=== PATIENT | male | born 1995 | race Caucasian/White ===

== ENCOUNTER 2022-02-01 11:56 | Emergency (ER) | payer SELFPAY ==
[~2022-02-01] VITALS: Ht 170.1 cm; Wt 61.3 kg
[2022-02-01 12:03] VITALS: BP 139/77
[2022-02-01] MEDS ORDERED: LIDOCAINE 1% INJ 50 ML (XYLOCAINE) VIAL ONE (12:04)
[2022-02-01] MEDS ORDERED: TETANUS,DIPTH,PERTUSS P/F (BOOSTRIX) 0.5 ML VIAL IM ONE (12:30)
--- NOTE | 2022-02-01 12:32 | ED Upper Extremity ---
General Chief Complaint: Laceration Stated Complaint: RT HAND LAC Nursing Triage Note: Patient presents to the ED with c/o laceration to right hand. States he was moving a cast iron table when it tipped over and fell on his right hand causing the laceration. Source: patient Exam Limitations: no limitations History of Present Illness Date Seen by Provider: Feb 01, 2022 Time Seen by Provider: 12:02 Initial Comments 23-year-old right-handed male patient states he was moving a cast iron table and it tripped and cut his right hand on thenar area. Patient rated his pain as a moderate pain and denies other injuries. Patient is not up-to-date with tetanus immunization. Onset: just prior to arrival Allergies and Home Medications Allergies Coded Allergies: Penicillins (Verified Allergy, Unknown, 02/01/22) Patient Home Medication List Home Medication List Reviewed: Yes Review of Systems Constitutional: no symptoms reported EENTM: no symptoms reported Respiratory: no symptoms reported Cardiovascular: no symptoms reported Gastrointestinal: no symptoms reported Genitourinary: no symptoms reported Musculoskeletal: see HPI Skin: see HPI Psychiatric/Neurological: No Symptoms Reported All Other Systems Reviewed Negative Unless Noted: Yes Past Dprpniy-Jhqckn-Omqazr Hx Patient Social History Tobacco Use?: Yes Tobacco type used: Cigarettes Substance use?: No Alcohol Use?: Yes Alcohol type: Beer Alcohol Frequency: Once in a while Pt feels they are or have been: No Immunizations Up To Date First/Initial COVID19 Vaccinat: Not currently vaccinated Past Medical History Surgery/Hospitalization HX: Hernia repair; migraines Physical Exam Vital Signs Vital Signs - First Documented 02/01/22 12:03 Temp 36.8 Pulse 85 Resp 14 B/P (MAP) 139/77 (97) Pulse Ox 98 O2 Delivery Room Air Capillary Refill : Less Than 3 Seconds Height, Weight, BMI Height: '" Weight: lbs. oz. kg; 21.00 BMI Method: General Appearance: WD/WN, no apparent distress HEENT: PERRL/EOMI, normal ENT inspection Neck: non-tender, full range of motion, supple Cardiovascular: regular rate, rhythm, no edema Respiratory: chest non-tender, lungs clear, normal breath sounds, no respiratory distress, no accessory muscle use Back: normal inspection Shoulder: normal inspection Elbow/Forearm: normal inspection Wrist: Yes normal inspection Hand: Right, laceration Neurologic/Tendon: normal sensation, normal motor functions, normal tendon functions Neurologic/Psychiatric: no motor/sensory deficits Skin: normal color, tattoos/piercings 2 cm flap laceration on right thenar area without active bleeding Procedures/Interventions Wound Location: Upper Extremities Wound Length (cm): 2 Wound's Depth, Shape: flap Wound Explored: no foreign body removed Irrigated w/ Saline (ccs): 30 Wound Debrided: none Suture: Prolene Suture Size: 4-0 Number of Sutures: 5 Layer Closure?: 1 Sterile Dressing Applied?: Yes Progress/Results/Core Measures Results/Orders My Orders Orders - JOSELO LIZAMA MD Lidocaine 1% Inj 50 Ml (Xylocaine 1% Inj (02/01/22 12:04) Dipht,Pertuss(Acell),Tet Adult (Boostrix (02/01/22 12:30) Lidocaine 1% Inj 50 Ml (Xylocaine 1% Inj (02/01/22 12:45) Medications Given in ED Current Medications Medications Dose Ordered Sig/Gato Route Start Time Stop Time Status Last Admin Dose Admin Diphtheria/ Tetanus/Acell Pertussis 0.5 ml ONCE ONCE IM 02/01/22 12:30 02/01/22 12:31 DC 02/01/22 12:41 0.5 ML Lidocaine HCl 50 ml STK-MED ONCE .ROUTE 02/01/22 12:04 02/01/22 12:06 DC 02/01/22 12:44 50 ML Vital Signs/I&O 02/01/22 12:03 Temp 36.8 Pulse 85 Resp 14 B/P (MAP) 139/77 (97) Pulse Ox 98 O2 Delivery Room Air Blood Pressure Mean: 97 Progress Progress Note : Progress Note Evaluation of patient in ER showed 26-year-old right-handed male patient with flap laceration of volar side of right hand that was repaired with 5 sutures. Tdap was given and patient advised to keep wound clean and dry and return to ER or follow-up with his primary care physician in 10 days for suture removal. Departure Impression Primary Impression: Laceration of right hand Qualified Codes: S61.411A - Laceration without foreign body of right hand, initial encounter Disposition: 01 HOME, SELF-CARE Condition: Improved Departure-Patient Inst. Decision time for Depature: 12:31 Referrals: NO,LOCAL PHYSICIAN (PCP/Family) Primary Care Physician Patient Instructions: Laceration Repair With Stitches ED, Wound Care ED, Tetanus Toxoid (Adsorbed) Add. Discharge Instructions: Keep wound clean and dry Suture removal in 10 days May take Tylenol and ibuprofen as needed for pain Return to ER as needed All discharge instructions reviewed with patient and/or family. Voiced understanding. JOSELO LIZAMA MD Feb 01, 2022 12:32
[2022-02-01] MEDS ORDERED: LIDOCAINE 1% INJ 50 ML (XYLOCAINE) VIAL IJ ONE (12:45)
== END 2022-02-01 12:45 | disposition home or self-care (01) ==
LOC: ER FS 11:57
DX: S61.411A Laceration without foreign body of right hand, initial encounter (principal); F17.210 Nicotine dependence, cigarettes, uncomplicated; Z23 Encounter for immunization; Z28.310 Unvaccinated for COVID-19; W26.8XXA Contact with other sharp object(s), not elsewhere classified, initial encounter
CPT/HCPCS: 12001; 90715

== ENCOUNTER 2022-04-14 04:02 | Emergency (ER) | payer SELFPAY ==
[~2022-04-14] VITALS: Ht 170.1 cm; Wt 60.2 kg
[2022-04-14] MEDS ORDERED: CLINDAMYCIN 150 MG (CLEOCIN) CAP PO ONE (04:15)
[2022-04-14] MEDS ORDERED: KETOROLAC 30 MG/ML VIAL IM ONE (04:15)
[2022-04-14] MEDS ORDERED: KETO10TA PO (04:19)
[2022-04-14] MEDS ORDERED: CLIN-144 PO (04:19)
--- NOTE | 2022-04-14 04:21 | ED EENT ---
History of Present Illness General Chief Complaint: Dental Problems/Pain Stated Complaint: TOOTH PAIN Source: patient Exam Limitations: no limitations History of Present Illness Date Seen by Provider: Apr 14, 2022 Time Seen by Provider: 04:08 Initial Comments 27-year-old male with no pertinent past medical history coming in due to bilateral tooth pain on the upper part of his mouth. He states he has had bad teeth for a while, on started getting worse, scheduled an appointment for a dentist in 2 days from today. Pain worsened yesterday and he feels like one of the teeth broke a little bit more. Pain is constant, throbbing, severe. Took Tylenol couple hours ago which did help somewhat. Is otherwise denying any other acute complaints including any swelling or fever. Allergies and Home Medications Allergies Coded Allergies: Penicillins (Verified Allergy, Unknown, 02/01/22) Patient Home Medication List Home Medication List Reviewed: Yes Review of Systems Review of Systems Constitutional: No fever Eyes: No Symptoms Reported Ears: No Symptoms Reported Nose: no symptoms reported Mouth: see HPI Throat: no symptoms reported Respiratory: no symptoms reported Cardiovascular: no symptoms reported Gastrointestinal: no symptoms reported Musculoskeletal: no symptoms reported Skin: no symptoms reported Neurological: No Symptoms Reported Hematologic/Lymphatic: No Symptoms Reported Immunological/Allergic: no symptoms reported All Other Systems Reviewed Negative Unless Noted: Yes Past Whyljso-Rnfqnt-Emdplv Hx Patient Social History Substance use?: No Immunizations Up To Date First/Initial COVID19 Vaccinat: Not currently vaccinated Past Medical History Surgery/Hospitalization HX: Hernia repair; migraines Surgeries: Yes Physical Exam Height, Weight, BMI Height: '" Weight: lbs. oz. kg; 21.00 BMI Method: General Appearance: WD/WN, mild distress Eyes: bilateral eye normal inspection Ears: bilateral ear auricle normal Nose: normal inspection Mouth/Throat: dental tenderness (No abscess felt, floor of mouth is soft, normal oropharynx, no trismus, normal voice) Neck: non-tender, full range of motion, supple, normal inspection Cardiovascular: regular rate, rhythm, no edema, no murmur Respiratory: chest non-tender, lungs clear, normal breath sounds, no respiratory distress, no accessory muscle use Gastrointestinal: normal bowel sounds, non tender, soft; No distended, No guarding, No rebound Neurologic/Psychiatric: no motor/sensory deficits, alert, normal mood/affect Skin: normal color, warm/dry Procedures/Interventions Suture Size: 4-0 Progress/Results/Core Measures Results/Orders My Orders Orders - EMIGDIO RUCKER MD Clindamycin Capsule (Cleocin Capsule) (04/14/22 04:15) Ketorolac Injection (Toradol Injection) (04/14/22 04:15) Progress Progress Note : Progress Note 27-year-old male with above history coming in due to dental pain. ABCs were intact and vitals were stable on presentation. Physical exam with multiple dental caries and a couple fractured teeth, but no swelling or obvious abscess. No red flags otherwise. Given clindamycin and IM Toradol. Has an appointment with his dentist in a couple of days. Will be given antibiotics to get him through the week. Departure Impression Primary Impression: Pain, dental Disposition: HOME, SELF-CARE Condition: Stable Departure-Patient Inst. Decision time for Depature: 04:25 Referrals: NO,LOCAL PHYSICIAN (PCP/Family) Primary Care Physician Patient Instructions: Dental Pain Add. Discharge Instructions: These teeth do need to come out, the antibiotics will help with the problem for short period of time, but think of it like a Band-Aid, and the problem will come back. Toradol was sent to your pharmacy as well. Do not mix this with ibuprofen, but you can take Tylenol with it. Scripts Clindamycin HCl (Clindamycin HCl) 300 Mg Capsule 300 MG PO QID for 7 Days, #28 CAP Prov: EMIGDIO RUCKER MD 04/14/22 Ketorolac Tromethamine (Ketorolac Tromethamine) 10 Mg Tablet 10 MG PO Q6H for 3 Days, #12 TAB Prov: EMIGDIO RUCKER MD 04/14/22 Work/School Note: Work Release Form Date Seen in the Emergency Department: Apr 14, 2022 Return to Work: Apr 16, 2022 Restrictions: No Restrictions EMIGDIO RUCKER MD Apr 14, 2022 04:20
[2022-04-14 04:33] VITALS: BP 129/64
== END 2022-04-14 04:33 | disposition home or self-care (01) ==
LOC: EDUNIT# 04:02 → ER FS 04:05
DX: K02.9 Dental caries, unspecified (principal); K03.81 Cracked tooth; Z88.0 Allergy status to penicillin; Z28.310 Unvaccinated for COVID-19
CPT/HCPCS: 99283

== ENCOUNTER 2023-03-28 13:28 | Emergency (ER) | payer OTHER ==
[~2023-03-28] VITALS: Ht 170 cm; Wt 61.2 kg
[~2023-03-28 13:28] MED LIST: CLIN-144 PO; KETO10TA PO
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
[2023-03-28 14:16] VITALS: BP 114/58
== END 2023-03-28 14:18 | disposition home or self-care (01) ==
LOC: EDUNIT# 13:28 → ER FS 13:29
DX: R51.9 Headache, unspecified (principal); Z28.310 Unvaccinated for COVID-19; V89.2XXA Person injured in unspecified motor-vehicle accident, traffic, initial encounter; Y92.410 Unspecified street and highway as the place of occurrence of the external cause
CPT/HCPCS: 70450